=== PATIENT | female | born 1970 | race Caucasian/White ===

== ENCOUNTER 2018-10-14 10:20 | Emergency (ER) | payer OTHER, MEDICAID, SELFPAY ==
--- NOTE | 2018-10-14 10:33 | DI.CT.S_ITS ---
PROCEDURE: CT HEAD/BRAIN WO CON INDICATIONS: right sided facial droop TECHNIQUE: Noncontrast 4.5 mm thick angled axial sections acquired from the foramen magnum to the vertex, with coronal and sagittal reformats. For radiation dose reduction, the following was used: automated exposure control, adjustment of mA and/or kV according to patient size. COMPARISON: None. FINDINGS: Image quality: Excellent. CSF spaces: Basal cisterns are patent. No extra-axial fluid collections. Ventricles are normal in size and shape. Brain: No midline shift. No intracranial masses or hemorrhage. Rodriguez-white matter interface is normal. Skull and face: Calvarium and visualized facial bones are intact, without suspicious lesions. Sinuses: Visualized sinuses and mastoids are clear. IMPRESSION: No acute intracranial abnormality. Dictated by: Jose Francisco Garcia M.D. on 10/14/2018 at 10:44 Approved by: Jose Francisco Garcia M.D. on 10/14/2018 at 10:45
[2018-10-14 10:34] VITALS: BP 191/91; PULSE 83; RESP 18; TEMP 37.1; O2SAT 100
--- NOTE | 2018-10-14 10:52 | ED_ITS ---
HPI - Neuro Symptoms/Deficit General Chief Complaint: Neuro Symptoms/Deficit Stated Complaint: RT SIDE OF FACE NOT MOVING, PREVIOUS STROKE Time Seen by Provider: 10/14/18 10:29 Source: patient Mode of arrival: ambulatory Limitations: no limitations History of Present Illness HPI Narrative: Patient is a 48-year-old female presenting with difficulty speaking and dizziness. She recently had a stroke and was discharged from [facility] about 10 days ago. His right-sided facial droop is residual from that stroke. Friend states that there was some difficulty understanding her speech which has clearly now resolved. She when outside this morning have a cigarette which is when she started to feel dizzy and lightheaded. Patient's records from [facility] have been received and reviewed. She initially was called as a code stroke with right-sided facial droop and slurred speech. 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 Patient then had CT a an MRI neither which revealed any stroke or infarct. She was admitted. Thought to be an atypical presentation of Arreaga's palsy considering that her forehead was spared she was started on glucocorticoid an acyclovir. Onset (ago): minute(s) Timing confirmed by: other Location: speech and right face Severity: similar to previous episodes On Anticoagulants: No Related Data Home Medications Medication Instructions Recorded Confirmed atorvastatin 40 mg PO DAILY 10/14/18 10/14/18 losartan 50 mg PO DAILY 10/14/18 10/14/18 propranolol 20 mg PO BID 10/14/18 10/14/18 propranolol 80 mg PO DAILY 10/14/18 10/14/18 tramadol 50 mg PO Q6H PRN 10/14/18 10/14/18 valacyclovir 1 g PO TID 10/14/18 10/14/18 varenicline [Chantix Starting 1 dose PO DIRECTED 10/14/18 10/14/18 Month Box] Review of Systems Review of Systems ROS Unobtainable: All systems reviewed & are unremarkable except as noted in HPI and below Constitutional Denies chills, Denies fever(s), Denies lethargy and Denies weakness Eyes Denies change in vision, Denies eye discharge, Denies irritation and Denies loss of vision Cardiovascular Denies chest pain, Denies irregular heart rhythm, Denies lightheadedness, Denies palpitations, Denies dyspnea, Denies dyspnea on exertion and Denies orthopnea Respiratory Denies cough, Denies dyspnea, Denies dyspnea on exertion and Denies wheezing Gastrointestinal Gastrointestinal: Denies abdominal pain, Denies change in bowel habits, Denies diarrhea, Denies nausea and Denies vomiting Musculoskeletal Denies back pain, Denies muscle weakness, Denies numbness and Denies tingling Integumentary/Breasts Denies pruritus, Denies erythema, Denies rash and Denies wounds Neurologic Reports as per HPI, Reports abnormal speech, Denies loss of vision, Denies numbness, Denies tingling and Denies weakness Endocrine Denies palpitations Allergic/Immunologic Denies wheezing PFSH Medical History Anxiety (Chronic) Arreaga's palsy (Chronic) Depression (Chronic) Hepatitis (Chronic) Hypertension (Chronic) Migraine (Chronic) Uterine cancer (Chronic) Social History Smoking Status: Current every day smoker Social History Smoking Status: Current every day smoker Exam Initial Vital Signs Initial Vital Signs: Vital Signs Temperature 98.7 F 10/14/18 10:34 Pulse Rate 83 10/14/18 10:34 Respiratory Rate 18 10/14/18 10:34 Blood Pressure 191/91 H 10/14/18 10:34 Pulse Oximetry 100 10/14/18 10:34 GENERAL: thin alert female no acute distress HEENT: Head atraumatic,EOMI, pupils reactive, right-sided facial droop with forehead sparing CARDIOVASCULAR: Regular rate and rhythm without murmurs, rubs or gallops. RESPIRATORY: Breath sounds equal bilaterally, no wheezes rales or rhonchi. ABDOMEN: Soft, nontender. Normoactive bowel sounds all 4 quadrants. No guarding or rebound. EXTREMITIES: Normal range of motion, no clubbing or edema. Neurovascularly intact NEUROLOGICAL: Alert and oriented x4.Normal gait and speech. Cranial nerves II through XII grossly intact. Good [id number], good fksj-[id number], strength equal bilaterally, no dysarthria or aphasia, sensation in tact to soft touch bilaterally, no visual changes, no facial droop SKIN: Warm, dry, no laceration, no petechiae, no rashes or lesions. Scores NIH Stroke Scale Level of Conciousness: Alert, keenly responsive Ask month/age: Answers both questions correctly. Open/close eyes, close hand: Performs both tasks correctly Best gaze horizontal: Normal Visual [place]: No visual loss Facial palsy: Minor paralysis, flattened nasolabial fold, asymmetry on smiling Left arm drift: No drift for full 10 sec Right arm drift: No drift for full 10 sec Left leg drift: No drift for full 10 sec Right leg drift: No drift for full 10 sec Limb ataxia: Absent Sensory on face/arms/legs: Normal, no sensory loss Best language: No aphasia, normal Dysarthria: Normal Extinction or inattention: No abnormality Total NIH Stroke scale score: 1 Course Orders Ordered: ED Orders 10/14/18 10:33 CT head/brain wo con Stat 10/14/18 10:49 EKG-12 Lead Stat Discontinued Medications Sodium Chloride (Normal Saline 0.9%) 1,000 mls @ 150 mls/hr IV CONT BARBARA Vital Signs - 8 hr 10/14/18 10:34 Temperature 98.7 F Pulse Rate 83 Respiratory Rate 18 Blood Pressure 191/91 H Pulse Oximetry 100 MDM - Neuro Symptoms/Deficit Medical Records Attestation: I reviewed the patient's medical records. Lab Data Point of Care Testing Glucose POC [address] scan - head: Radiologist's impression: PROCEDURE: CT HEAD/BRAIN WO CON INDICATIONS: right sided facial droop TECHNIQUE: Noncontrast 4.5 mm thick angled axial sections acquired from the foramen magnum to the vertex, with coronal and sagittal reformats. For radiation dose reduction, the following was used: automated exposure control, adjustment of mA and/or kV according to patient size. COMPARISON: None. FINDINGS: Image quality: Excellent. CSF spaces: Basal cisterns are patent. No extra-axial fluid collections. Ventricles are normal in size and shape. Brain: No midline shift. No intracranial masses or hemorrhage. Rodriguez-white matter interface is normal. Skull and face: Calvarium and visualized facial bones are intact, without suspicious lesions. Sinuses: Visualized sinuses and mastoids are clear. IMPRESSION: No acute intracranial abnormality. Dictated by: Jose Francisco Garcia M.D. on 10/14/2018 at 10:44 ECG Data Attestation: I personally reviewed and interpreted this ECG as follows: Prior ECG tracings: not available for review Interpretation: Normal sinus rhythm rate [address] changes no T-wave inversions MN interval 115 MDM Narrative Medical decision making narrative: 11:25am- patient is requesting to leave Patient is refusing IV she suddenly wants to leave. I recommended that she take 81 mg aspirin daily. Patient was told that she should stay and sign against medical advice papers and receive discharge instructions however she left prior to paperwork. The patient is clinically sober, free from distracting injury, appears to have intact insight, judgment and reason. Does not meet criteria for involuntary hospitalization. Patient has the capacity to make decisions. I spoke at length with patient's boyfriend and patient. Her symptoms have completely resolved except for the persistent right-sided facial droop. still possibility of TIA. I reviewed [facility] records she had MRI CT a and head CT. patient has taken off all of her cardiac leads pulse oximeter monitor and got herself dressed. Patient is also complaining of a left-sided neck swelling. Patient had no respiratory problems. She had a CTA 10 days ago which did not show any abnormality. It was noted that she had some anterior cervical bilateral lymphadenopathy is however today I do not appreciate any lymphadenopathy. She has no pulsatile masses. . Discharge Plan Departure Patient Disposition: Left Against Medical Advice Clinical Impression: Transient cerebral ischemia Discharge Date/Time: 10/14/18 11:25 Interventions: ED Discharge Assessment Last Done: 10/14/18 11:38 Instructions: DI for Transient Ischemic Attack Activity Restrictions/Additional Instructions: *You have been diagnosed with TIA *What to do: Recommend close follow-up with primary care provider *Continue to take medications as directed 81 mg aspirin once a day *Follow up with your primary care provider in 2-3 days *Return to ER if you should have difficulty speaking, arm or leg weakness or any new, worsening or concerning symptoms Prescriptions: No Action losartan 50 mg tablet 50 mg PO DAILY RF: 0 atorvastatin 40 mg tablet 40 mg PO DAILY RF: 0 propranolol 80 mg tablet 80 mg PO DAILY RF: 0 valacyclovir 1 gram tablet 1 g PO TID RF: 0 tramadol 50 mg tablet 50 mg PO Q6H PRN (Reason: Pain, Moderate) RF: 0 propranolol 20 mg tablet 20 mg PO BID RF: 0 varenicline [Chantix Starting Month Box] 0.5 mg (11)- 1 mg (42) tablets,dose pack 1 dose PO DIRECTED RF: 0 Stand Alone Forms: Against Medical Advice
--- NOTE | 2018-10-14 11:37 | PC.NURSE ---
Addendum entered by Kelly Monge R.N. 10/14/18 11:38: Attempted to start IV, but patient requesting ultrasound guided IV start. Called DI nurse for IV start. Original Note: today noticed sudden head matias while smoking and increased slurred speech. Pt states had difficulty understanding speech. Resolved now. Continues to have face droop and some left sided face numbness.
== END 2018-10-14 11:25 | disposition left against medical advice (07) ==
PROVIDERS: Emergency Provider Emergency Medicine
DX: G45.9 Transient cerebral ischemic attack, unspecified (principal)
CPT/HCPCS: 70450; 82962; 93005; 99283; 99285; 99291